=== PATIENT | female | born 2000 | race African-American/Black ===

== ENCOUNTER 2021-12-25 21:15 | Emergency (ER) | payer SELFPAY ==
[2021-12-25] MEDS ORDERED: Ketorolac Tromethamine 30 MG/ML VIAL ONE (23:55)
== END 2021-12-26 01:07 | disposition left against medical advice (07) ==
LOC: CSHERS 21:15
DX: G43.909 Migraine, unspecified, not intractable, without status migrainosus (principal); J45.909 Unspecified asthma, uncomplicated; I10 Essential (primary) hypertension; Z79.899 Other long term (current) drug therapy
CPT/HCPCS: 96372; 99283; J1885